=== PATIENT | female | born 1955 | race African-American/Black ===

== ENCOUNTER 2017-05-22 16:48 | Emergency (ER) | payer MEDICAID ==
[~2017-05-22] VITALS: Ht 167.6 cm; Wt 95.3 kg
[2017-05-22] MEDS ORDERED: PLAQUENIL200 MG ORAL ×2 (17:38→20:36)
[2017-05-22] MEDS ORDERED: NAPROXEN250 M1 PO (17:38)
[2017-05-22] MEDS ORDERED: NEXIUM40 MG ORAL ×2 (17:38→20:36)
[2017-05-22] MEDS ORDERED: CALCIUM 1,0001 EAC1 PO (17:38)
[2017-05-22] MEDS ORDERED: NEURONTIN600 MG ORAL (17:38)
[2017-05-22 19:13] VITALS: BP 145/77
[2017-05-22 19:33] LABS: BASOPHILS % (AUTO) 1.5 % (0.0-2.0); EOSINOPHILS % (AUTO) 2.6 % (0.0-3.0); LYMPHOCYTES % (AUTO) 35.6 % (20.0-45.0); MEAN CORPUSCULAR HEMOGLOBIN 33.4 PG (27.0-31.0); MEAN CORPUSCULAR HGB CONC 33.4 G/DL (32.0-36.0); MEAN CORPUSCULAR VOLUME 100 FL (80-99); MEAN PLATELET VOLUME 7.9 FL (6.5-10.1); NEUTROPHILS % (AUTO) 53.4 % (45.0-75.0); PLATELET COUNT 214 K/UL (150-450); RED BLOOD COUNT 3.84 M/UL (4.20-5.40); RED CELL DISTRIBUTION WIDTH 12.9 % (11.6-14.8); WHITE BLOOD COUNT 6.6 K/UL (4.8-10.8)
[2017-05-22 19:54] LABS: ALANINE AMINOTRANSFERASE 5 U/L (3-33); ALBUMIN/GLOBULIN RATIO 1.1 (1.0-2.7); ANION GAP 15 (5-15); ASPARTATE AMINO TRANSFERASE 17 U/L (5-40); CARBON DIOXIDE 27 mEQ/L (20-30); CHLORIDE 102 mEQ/L (98-107); CREATININE 1.1 mg/dL (0.5-0.9); GLOMERULAR FILTRATION RATE > 60 mL/min (>60); HEMOLYSIS 45; POTASSIUM 4.2 mEQ/L (3.4-4.9); SODIUM 144 mEQ/L (135-145); TOTAL PROTEIN 7.2 g/dL (6.6-8.7)
[2017-05-22] MEDS ORDERED: CLINDAMYCIN HC300 MG ORAL (20:36)
[2017-05-22] MEDS ORDERED: NAPROSYN500 M1 ORAL (20:36)
[2017-05-22] MEDS ORDERED: GABAPENTIN600 MG ORAL (20:36)
[2017-05-22 20:39] VITALS: BP 135/89
--- NOTE | 2017-05-23 08:45 | Diagnostic Imaging Report ---
Indication: PAIN Technique: Spiral acquisitions obtained through the cervical spine. No IV contrast utilized. Multiplanar reconstructions were generated. Total dose length product 502 mGycm. CTDIvol(s) 22 mGy. Dose reduction achieved using automated exposure control Comparison: None Findings: There is reversal of the normal cervical lordosis. Otherwise normal bony alignment. No prevertebral soft tissue swelling. No acute fractures. At C2-3, there is moderate to severe narrowing of the right neural foramen due to facet degeneration. No significant disc bulge or protrusion or spinal stenosis. The disc space is preserved At C3-4, there is degenerative disc narrowing, mild. There is moderate to severe narrowing of the right neural foramen due to facet hypertrophy. No significant disc bulge or protrusion or spinal stenosis At C4-5, there is left paracentral broad-based posterior disc protrusion. This results in mild narrowing of spinal canal, may result in slight impingement on the anterior aspect of the cord. The disc space is preserved. There is minimal left neural foraminal stenosis. The facets are unremarkable. At C5-6, there is severe degenerative disc narrowing. There is severe bilateral neural foraminal stenosis. No significant disc bulge or protrusion or spinal stenosis. At C6-7, there is mild narrowing of the disc. No significant disc bulge or protrusion, spinal stenosis, neural foraminal stenosis, or facet degeneration. At C7-T1, no significant disc bulge or protrusion, spinal stenosis, or neural frontal stenosis. The lung apices demonstrate some small bullae on the right. The included extraspinal soft tissues are otherwise unremarkable. Impression: No acute bony trauma Multilevel degenerative changes, as detailed above Pulmonary apical bullous changes The CT scanner at [facility] is accredited by the [employer] and the scans are performed using protocols designed to limit radiation exposure to as low as reasonably achievable to attain images of sufficient resolution adequate for diagnostic evaluation.
--- NOTE | 2017-05-23 10:02 | Diagnostic Imaging Report ---
Clinical Indication: Anterior chest pain Technique: Spiral acquisitions obtained through the chest. No IV contrast utilized, reason not stated. Multiplanar reconstructions generated. Total dose length product 682 mGycm. CTDIvol(s) 17 mGy. Dose reduction achieved using automated exposure control Comparison: None Findings:The lungs demonstrate bilateral mostly upper lung apical bullous changes. There is minimal pleural thickening posteriorly bilaterally left greater than right. There is a 4 mm slightly irregular opacity within the inferior right upper lobe, image 26 series 5. Minimal atelectasis or scarring is seen at the left lung base. Ill-defined peripheral parenchymal opacity is seen laterally in the right middle lobe. There is a small to moderate-sized sliding-type hiatal hernia. The remainder of the esophagus is unremarkable. There is a 5 mm thick pericardial effusion anteriorly. The heart size is normal. No mediastinal or hilar mass or adenopathy. The included portions of the thyroid are unremarkable. The bones are remarkable for the presence of L1 compression fracture deformity area no axillary or chest wall mass or adenopathy. The included upper abdominal anatomy demonstrates what appears to be marked right hydronephrosis Impression: No definite acute abnormal Evidence of bullous COPD 4 mm right upper lobe nodule. If there is high risk for lung carcinoma, recommend 6-[address] L1 compression fracture, acuity indeterminate. Consider MRI for better characterization if this is clinically relevant Suspect significant right hydronephrosis. Recommend further evaluation with abdomen pelvis CT Small pericardial effusion Hiatal hernia This agrees with the preliminary interpretation provided overnight by Dr. Babb The CT scanner at [facility] is accredited by the [employer] and the scans are performed using protocols designed to limit radiation exposure to as low as reasonably achievable to attain images of sufficient resolution adequate for diagnostic evaluation.
--- NOTE | 2017-05-23 10:41 | Emergency Room Report ---
Physical Exam Vital Signs Date Time Temp Pulse Resp B/P Pulse Ox O2 Delivery O2 Flow Rate FiO2 05/22/17 17:27 98.4 75 16 151/89 99 Room Air Medical Decision Making Diagnostic Impression: Primary Impression: Lupus Additional Impressions: Compression fracture of L1 lumbar vertebra Qualified Codes: S32.010A - Wedge compression fracture of first lumbar vertebra, initial encounter for closed fracture Compression fracture of L2 Qualified Codes: S32.020A - Wedge compression fracture of second lumbar vertebra, initial encounter for closed fracture ER Course Dr Galvan called at 1040am that this patient who was DCed from ED last night also has an L2 compression fx that was missed by [facility] interpretation. I spoked with ER MD Chao who confirmed that patient was aware of both L1 and L2 fx from previous injury and are chronic injuries. Last Vital Signs Date Time Temp Pulse Resp B/P Pulse Ox O2 Delivery O2 Flow Rate FiO2 05/22/17 20:39 80 20 135/89 99 Room Air 05/22/17 20:39 98.7 Disposition: HOME, SELF-CARE Condition: Stable Scripts Clindamycin Hcl (CLINDAMYCIN HCL) 300 Mg Capsule 300 MG ORAL THREE TIMES A DAY, #21 CAP Prov: TITO CHAO M.D. 05/22/17 Esomeprazole Magnesium (NEXIUM) 40 Mg Capsule. 40 MG ORAL DAILY, #30 CAP Prov: TITO CHAO M.D. 05/22/17 Naproxen* (NAPROSYN*) 500 Mg Tablet 500 MG ORAL TWICE A DAY for 30 Days, TAB Prov: TITO CHAO M.D. 05/22/17 Gabapentin* (GABAPENTIN*) 600 Mg Tablet 600 MG ORAL BID for 30 Days, TAB Prov: TITO CHAO M.D. 05/22/17 Hydroxychloroquine Sulfate* (PLAQUENIL*) 200 Mg Tablet 200 MG ORAL DAILY, #30 TAB Prov: TITO CHAO M.D. 05/22/17 Patient Instructions: Systemic Lupus Erythematosus, Adult MICHEL BA M.D. May 23, 2017 10:41
--- NOTE | 2017-05-23 14:06 | Diagnostic Imaging Report ---
Indications: PAIN Technique: Spiral acquisitions obtained through the lumbar spine. Multiplanar reconstructions were generated. No IV contrast utilized. Total dose length product 64 mGycm. CTDIvol(s) 21 mGy. Dose reduction achieved using automated exposure control Comparison: None Findings: There is a compression fracture deformity of the L1 vertebral body, resulting in about 40% height loss anteriorly. There is some sclerosis. There is slight posterior retropulsion of the superior wall. There is a very mild compression fracture deformity of the L2 vertebral body, mostly involving the superior endplate but also with some height loss anteriorly. No significant retropulsion. The remaining vertebral body heights are preserved. The bony alignment is normal. The disc spaces are preserved. There are degenerative changes of the L3-4, L4-5, L5-S1 facets on the right, and L4-5 and L5-S1 facets on the left. The L1 retropulsion does not appear significantly compromise the spinal canal. At L3-4, there is circumferential annular bulge which does not appear to severely compromise the spinal canal or neural foramina. At L4-5, there is circumferential annular bulge which, in combination with and ligamentum flavum hypertrophy results in minimal narrowing of the spinal canal. At L5-S1, there is circumferential annular bulge as well as broad-based right subarticular disc protrusion. This, in combination with some narrowing of the neural foramen, result in significant neural foraminal compromise. There is right hydronephrosis and prominent dilated extrarenal pelvis, normal caliber right ureter. Impression: L1 vertebral body compression fracture, as described, with slight burst component acuity indeterminate. Consider MRI for further evaluation if clinically indicated and if intervention would be contemplated L5-S1 broad-based right subarticular disc protrusion, resulting and neural foraminal compromise, exacerbated by bony impingement on the neural foramen. Other mild degenerative changes as detailed level by level basis above. The above findings are in agreement with the eliminate report provided by Dr. 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 Duong in the emergency room at the time of interpretation The CT scanner at [facility] is accredited by the [employer] and the scans are performed using protocols designed to limit radiation exposure to as low as reasonably achievable to attain images of sufficient resolution adequate for diagnostic evaluation.
--- NOTE | 2017-05-23 22:26 | Emergency Room Report ---
History of Present Illness General Chief Complaint: General Complaint Source: Patient Present Illness HPI 61-year-old female presents to ED for evaluation. Patient states she feels weak last several days. Denies any fevers or chills. Denies any nausea or vomiting. Denies chest pain shortness of breath. Patient states she was recently released from present. 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 Patient states that she had a recent fall where she landed face first. Denies LOC. Is complaining of some left-sided rib pain, back pain. Pain is a 8/10, nonradiating. Sharp. No aggravating or relieving factors. Denies any other associated symptom Allergies: Coded Allergies: ALFALFA (Verified Allergy, Unknown, 05/22/17) DORANTES (Verified Allergy, Unknown, 05/22/17) IODINE (Verified Allergy, Unknown, 05/22/17) PENICILLINS (Verified Allergy, Unknown, 05/22/17) Patient History Past Medical History: none Past Surgical History: none Pertinent Family History: none Social History: Denies: alcohol use, drug use, smoking Now: No Immunizations: UTD Reviewed Nursing Documentation: PMH: Agreed, PSxH: Agreed Review of Systems All Other Systems: negative except mentioned in HPI Physical Exam Vital Signs Date Time Temp Pulse Resp B/P Pulse Ox O2 Delivery O2 Flow Rate FiO2 05/22/17 17:27 98.4 75 16 151/89 99 Room Air Sp02 EP Interpretation: reviewed, normal General Appearance: no apparent distress, alert, GCS 15, non-toxic Head: normocephalic, atraumatic Eyes: bilateral eye PERRL, bilateral eye normal inspection ENT: normal ENT inspection Neck: normal inspection Respiratory: lungs clear, other - left anterior rib pain Cardiovascular #1: regular rate, rhythm, no edema Gastrointestinal: normal bowel sounds, non tender, soft, non-distended, no guarding, no rebound Rectal: deferred Genitourinary: no CVA tenderness, vertebral tenderness Musculoskeletal: back normal Neurologic: alert, oriented x3, responsive, motor strength/tone normal, sensory intact, speech normal Psychiatric: normal inspection Skin: normal inspection Lymphatic: normal inspection Medical Decision Making Diagnostic Impression: Primary Impression: Lupus Qualified Codes: M32.8 - Other forms of systemic lupus erythematosus Additional Impressions: Compression fracture of L2 Qualified Codes: S32.020A - Wedge compression fracture of second lumbar vertebra, initial encounter for closed fracture Compression fracture of L1 lumbar vertebra Qualified Codes: S32.010A - Wedge compression fracture of first lumbar vertebra, initial encounter for closed fracture ER Course Hospital Course 61-year-old female presents ED complaining of a neck and back pain status post fall. Feeling weak. Not taking her lupus medication Differential diagnosis includes-dehydration, fx, dislocation, PTX Clinical course Patient placed on stretcher. After initial history and physical I ordered labs , IV fluids, CT scans Labs - no leukocytosis, electrolytes ok CT scan show L1 fracture questionable acuity patient states that she had a fall while in residential and x-ray showed that she did have an L1 fracture Reassurance given to the patient. We will provider refills of her medications I feel this is a highly complex case requiring extensive working including EKG/ Rhythm strip, Xray/CT/US, Blood/urine lab work, repeat exams while in ED, and administration of strong opiates/narcotics for pain control, admission to hospital or close patient follow up. Diagnosis - discoid lupus, L1 fx Stable and discharged to home with Rx Plaquenil, gabapentin, naprosyn. Followup with PMD. Return to ED if symptoms recur or worsen Labs Test 05/22/17 19:00 White Blood Count 6.6 K/UL (4.8-10.8) Red Blood Count 3.84 M/UL (4.20-5.40) Hemoglobin 12.8 G/DL (12.0-16.0) Hematocrit 38.4 % (37.0-47.0) Mean Corpuscular Volume 100 FL (80-99) Mean Corpuscular Hemoglobin 33.4 PG (27.0-31.0) Mean Corpuscular Hemoglobin Concent 33.4 G/DL (32.0-36.0) Red Cell Distribution Width 12.9 % (11.6-14.8) Platelet Count 214 K/UL (150-450) Mean Platelet Volume 7.9 FL (6.5-10.1) Neutrophils (%) (Auto) 53.4 % (45.0-75.0) Lymphocytes (%) (Auto) 35.6 % (20.0-45.0) Monocytes (%) (Auto) 7.0 % (1.0-10.0) Eosinophils (%) (Auto) 2.6 % (0.0-3.0) Basophils (%) (Auto) 1.5 % (0.0-2.0) Sodium Level 144 mEQ/L (135-145) Potassium Level 4.2 mEQ/L (3.4-4.9) Chloride Level 102 mEQ/L (98-107) Carbon Dioxide Level 27 mEQ/L (20-30) Anion Gap 15 (5-15) Blood Urea Nitrogen 13 mg/dL (7-23) Creatinine 1.1 mg/dL (0.5-0.9) Estimat Glomerular Filtration Rate > 60 mL/min (>60) Glucose Level 78 mg/dL (74-106) Calcium Level 9.0 mg/dL (8.6-10.2) Total Bilirubin 0.4 mg/dL (0.0-1.2) Aspartate Amino Transf (AST/SGOT) 17 U/L (5-40) Alanine Aminotransferase (ALT/SGPT) 5 U/L (3-33) Alkaline Phosphatase 71 U/L (35-104) Total Protein 7.2 g/dL (6.6-8.7) Albumin 3.9 g/dL (3.5-5.2) Globulin 3.3 g/dL Albumin/Globulin Ratio 1.1 (1.0-2.7) CT/MRI/US Diagnostic Results CT/MRI/US Diagnostic Results : Imaging Test Ordered: CT C-spine, CT chest, CT L-spine Impression CT C-spine-no acute process CT chest-no rib fracture, L1 fracture a questionable acuity CT L-spine-L1 fracture questionable acuity Last Vital Signs Date Time Temp Pulse Resp B/P Pulse Ox O2 Delivery O2 Flow Rate FiO2 05/22/17 20:39 80 20 135/89 99 Room Air 05/22/17 20:39 98.7 Status: improved Disposition: HOME, SELF-CARE Condition: Stable Scripts Clindamycin Hcl (CLINDAMYCIN HCL) 300 Mg Capsule 300 MG ORAL THREE TIMES A DAY, #21 CAP Prov: TITO BEACH M.D. 05/22/17 Esomeprazole Magnesium (NEXIUM) 40 Mg Capsule.dr 40 MG ORAL DAILY, #30 CAP Prov: TITO BEACH M.D. 05/22/17 Naproxen* (NAPROSYN*) 500 Mg Tablet 500 MG ORAL TWICE A DAY for 30 Days, TAB Prov: TITO BEACH M.D. 05/22/17 Gabapentin* (GABAPENTIN*) 600 Mg Tablet 600 MG ORAL BID for 30 Days, TAB Prov: TITO BEACH M.D. 05/22/17 Hydroxychloroquine Sulfate* (PLAQUENIL*) 200 Mg Tablet 200 MG ORAL DAILY, #30 TAB Prov: TITO BEACH M.D. 05/22/17 Patient Instructions: Systemic Lupus Erythematosus, Adult TITO BEACH M.D. May 23, 2017 22:26
== END 2017-05-22 20:39 | disposition home or self-care (01) ==
LOC: EMR 18:29
DX: M32.8 Other forms of systemic lupus erythematosus (principal); S32.020A Wedge compression fracture of second lumbar vertebra, initial encounter for closed fracture; S32.010A Wedge compression fracture of first lumbar vertebra, initial encounter for closed fracture; W19.XXXA Unspecified fall, initial encounter; Y93.9 Activity, unspecified; Y92.9 Unspecified place or not applicable; Z91.018 Allergy to other foods; Z91.041 Radiographic dye allergy status; Z88.0 Allergy status to penicillin
CPT/HCPCS: 36415; 71250; 72125; 72131; 80053; 85025; 96374